=== PATIENT | female | born 1955 | race Caucasian/White ===

== ENCOUNTER 2016-08-03 11:54 | Inpatient (IN) | payer OTHER, SELFPAY ==
[~2016-08-03 11:54] MED LIST: AVELOX400 M1 PO; COLACE100 M1 PO; CUBICIN500 MG/10 IV; IBUPROFEN200 M2 PO; INVANZ1000 MG/VI IV; IRON325 M3 PO; NORCO 5-325 TA1 EACH PO; SILVADENE20 G1 TP; ZOLOFT100 M1 PO
[2016-08-03] MEDS ORDERED: ACETAMINOPHEN1 EAC4 PO (12:35)
[2016-08-03 12:45] LABS: HCT-HEMATOCRIT 26.5 % (34.0-49.0); HGB-HEMOGLOBIN 7.6 gm/dl (12.0-15.5); MCH (MEAN CORPUSCULAR HGB) 20.9 pg (28.0-32.0); MEAN PLATELET VOLUME 9.1 cmc (9.4-12.4); NEUTROPHIL-AUTOMATED 17.4 tho/cmm (1.6-8.0); PLATELET COUNT 221 tho/cmm (150-450); RED BLOOD COUNT 3.63 mil/cmm (4.00-5.20); RED CELL DISTRIBUTION WIDTH 16.3 % (12.4-16.4); WHITE BLOOD COUNT 18.4 tho/cmm (4.0-10.0)
[2016-08-03 12:54] LABS: MCHC MEAN CORPUSCULAR HGB CONC 28.7 % (32.0-36.0)
[2016-08-03 13:06] LABS: ALB/GLOB RATIO 0.6 (0.8-2.0); ALKALINE PHOSPHATASE 75 U/L (33-138); ALT/SGPT 17 U/L (12-78); ANION GAP 13 mmol/L (0-20); AST/SGOT 26 U/L (10-40); BILIRUBIN,TOTAL 0.6 mg/dl (0-1.5); BLOOD UREA NITROGEN 16 mg/dl (6-24); C-REACTIVE PROTEIN 7.9 mg/dl (0-0.9); CALCIUM 8.1 mg/dl (8.5-10.5); CARBON DIOXIDE-VENOUS 24 mmol/L (22-32); CHLORIDE 103 mmol/l (96-110); CREATININE 0.96 mg/dl (0.50-1.10); GLUCOSE 117 mg/dL (70-110); POTASSIUM 3.8 mmol/L (3.7-5.1); SODIUM 136 mmol/L (135-145); eGFR VALUE FOR BLACK 76 mL/Min
[2016-08-03 13:17] LABS: BAND % 21 % (0-20); BAND ABSOLUTE COUNT 3.9 tho/cmm (0-2.0)
[2016-08-03 13:29] LABS: INR 1.2 INR (0.9-1.1)
[2016-08-03 13:33] LABS: IRON 14 ug/dl (37-170); IRON BINDING CAPACITY 423 ug/dl (250-450)
[2016-08-03 13:34] LABS: PROCALCITONIN 11.97 ng/ml (0.05-0.09)
[2016-08-03 13:58] LABS: URINE APPEARANCE CLEAR; URINE BILIRUBIN NEGATIVE (NEG); URINE BLOOD SMALL (NEG); URINE COLOR DARK YELLOW; URINE GLUCOSE (UA) NEGATIVE (NEG); URINE KETONE SMALL (NEG); URINE LEUKOCYTE ESTERASE NEGATIVE (NEG); URINE NITRITE NEGATIVE (NEG); URINE PH 6.5 (5.0-8.0); URINE PROTEIN SMALL (NEG)
[2016-08-03 13:59] LABS: FOLATE (FOLIC ACID) 4.1 ng/ml (3.20-20.00)
[2016-08-03 14:05] LABS: URINE MUCUS 1+
[2016-08-03 14:06] LABS: URINE BACTERIA 1+; URINE RBC 0-3 /[HPF] (0-5); URINE WBC 0-1 /[HPF] (0-5)
[2016-08-03 21:39] LABS: ALB/GLOB RATIO 0.6 (0.8-2.0); ALBUMIN 2.4 g/dl (3.5-5.0); ALKALINE PHOSPHATASE 59 U/L (33-138); ALT/SGPT 15 U/L (12-78); ANION GAP 13 mmol/L (0-20); AST/SGOT 19 U/L (10-40); BILIRUBIN,TOTAL 0.4 mg/dl (0-1.5); BLOOD UREA NITROGEN 16 mg/dl (6-24); CALCIUM 7.2 mg/dl (8.5-10.5); CARBON DIOXIDE-VENOUS 23 mmol/L (22-32); CHLORIDE 107 mmol/l (96-110); CREATININE 0.81 mg/dl (0.50-1.10); GLUCOSE 110 mg/dL (70-110); POTASSIUM 3.6 mmol/L (3.7-5.1); SODIUM 139 mmol/L (135-145); eGFR VALUE FOR BLACK >90 mL/Min
[2016-08-04 05:23] LABS: BASO % 0.1 % (0-2); HGB-HEMOGLOBIN 6.4 gm/dl (12.0-15.5); IMMATURE GRANULOCYTES ABSOLUTE 0.03 tho/cmm (0-0.03); IMMATURE GRANULOCYTES PERCENT 0.3 % (0-0.3); LYMPH % 4.6 % (20-45); LYMPH ABSOLUTE COUNT 0.5 tho/cmm (0.8-4.5); MCH (MEAN CORPUSCULAR HGB) 21.4 pg (28.0-32.0); MCV (MEAN CELL VOLUME) 73.9 fl (82.0-96.0); MEAN PLATELET VOLUME 9.6 cmc (9.4-12.4); MONO % 5.3 % (0-12); MONOCYTE ABSOLUTE COUNT 0.6 tho/cmm (0.0-1.2); NEUTROPHIL ABSOLUTE COUNT 9.9 tho/cmm (1.6-8.0); NEUTROPHIL-AUTOMATED 9.9 tho/cmm (1.6-8.0); NEUTROPHILS % 89.7 % (40-80); PLATELET COUNT 149 tho/cmm (150-450); RED BLOOD COUNT 2.99 mil/cmm (4.00-5.20)
[2016-08-04 05:25] LABS: HCT-HEMATOCRIT 22.1 % (34.0-49.0)
[2016-08-04 05:35] LABS: ANION GAP 13 mmol/L (0-20); BLOOD UREA NITROGEN 17 mg/dl (6-24); CALCIUM 7.6 mg/dl (8.5-10.5); CARBON DIOXIDE-VENOUS 23 mmol/L (22-32); CHLORIDE 109 mmol/l (96-110); GLUCOSE 107 mg/dL (70-110); POTASSIUM 3.6 mmol/L (3.7-5.1); SODIUM 141 mmol/L (135-145); eGFR VALUE FOR BLACK >90 mL/Min
[2016-08-04 20:16] LABS: RED CELL DISTRIBUTION WIDTH 17.1 % (12.4-16.4)
[2016-08-04 20:24] LABS: HCT-HEMATOCRIT 18.3 % (34.0-49.0)
[2016-08-04 20:26] LABS: HGB-HEMOGLOBIN 5.3 gm/dl (12.0-15.5)
[2016-08-05 06:33] LABS: BASO % 0.1 % (0-2); IMMATURE GRANULOCYTES ABSOLUTE 0.03 tho/cmm (0-0.03); IMMATURE GRANULOCYTES PERCENT 0.4 % (0-0.3); LYMPH % 6.9 % (20-45); LYMPH ABSOLUTE COUNT 0.6 tho/cmm (0.8-4.5); MCV (MEAN CELL VOLUME) 75.6 fl (82.0-96.0); MEAN PLATELET VOLUME 9.8 cmc (9.4-12.4); MONO % 7.6 % (0-12); MONOCYTE ABSOLUTE COUNT 0.6 tho/cmm (0.0-1.2); PLATELET COUNT 133 tho/cmm (150-450); RED BLOOD COUNT 2.95 mil/cmm (4.00-5.20); RED CELL DISTRIBUTION WIDTH 17.3 % (12.4-16.4); WHITE BLOOD COUNT 8.2 tho/cmm (4.0-10.0)
[2016-08-05 06:37] LABS: HCT-HEMATOCRIT 22.3 % (34.0-49.0); HGB-HEMOGLOBIN 6.8 gm/dl (12.0-15.5); MCHC MEAN CORPUSCULAR HGB CONC 30.5 % (32.0-36.0)
[2016-08-05 07:04] LABS: C-REACTIVE PROTEIN 15.8 mg/dl (0-0.9); PROCALCITONIN 3.16 ng/ml (0.05-0.09)
[2016-08-06 05:44] LABS: BASO % 0.1 % (0-2); HGB-HEMOGLOBIN 8.3 gm/dl (12.0-15.5); IMMATURE GRANULOCYTES ABSOLUTE 0.04 tho/cmm (0-0.03); IMMATURE GRANULOCYTES PERCENT 0.5 % (0-0.3); LYMPH % 10.2 % (20-45); LYMPH ABSOLUTE COUNT 0.9 tho/cmm (0.8-4.5); MCH (MEAN CORPUSCULAR HGB) 22.7 pg (28.0-32.0); MCHC MEAN CORPUSCULAR HGB CONC 29.7 % (32.0-36.0); MCV (MEAN CELL VOLUME) 76.4 fl (82.0-96.0); MEAN PLATELET VOLUME 9.6 cmc (9.4-12.4); MONO % 9.6 % (0-12); MONOCYTE ABSOLUTE COUNT 0.8 tho/cmm (0.0-1.2); NEUTROPHIL ABSOLUTE COUNT 6.6 tho/cmm (1.6-8.0); NEUTROPHIL-AUTOMATED 6.6 tho/cmm (1.6-8.0); NEUTROPHILS % 79.6 % (40-80); PLATELET COUNT 176 tho/cmm (150-450); RED BLOOD COUNT 3.65 mil/cmm (4.00-5.20); RED CELL DISTRIBUTION WIDTH 17.2 % (12.4-16.4); WHITE BLOOD COUNT 8.3 tho/cmm (4.0-10.0)
[2016-08-06 05:49] LABS: HCT-HEMATOCRIT 27.9 % (34.0-49.0)
[2016-08-06 06:02] LABS: C-REACTIVE PROTEIN 17.2 mg/dl (0-0.9); CREATINE PHOSPHOKINASE (CPK) 17 U/L (21-215)
[2016-08-06 07:07] LABS: PROCALCITONIN 2.98 ng/ml (0.05-0.09)
[2016-08-07 04:47] LABS: BASO % 0.3 % (0-2); EOS % 0.1 % (0-7); HCT-HEMATOCRIT 28.8 % (34.0-49.0); HGB-HEMOGLOBIN 8.4 gm/dl (12.0-15.5); IMMATURE GRANULOCYTES ABSOLUTE 0.11 tho/cmm (0-0.03); IMMATURE GRANULOCYTES PERCENT 1.4 % (0-0.3); LYMPH % 13.4 % (20-45); LYMPH ABSOLUTE COUNT 1.1 tho/cmm (0.8-4.5); MCH (MEAN CORPUSCULAR HGB) 22.5 pg (28.0-32.0); MCHC MEAN CORPUSCULAR HGB CONC 29.2 % (32.0-36.0); MEAN PLATELET VOLUME 9.7 cmc (9.4-12.4); MONO % 10.1 % (0-12); MONOCYTE ABSOLUTE COUNT 0.8 tho/cmm (0.0-1.2); NEUTROPHILS % 74.7 % (40-80); PLATELET COUNT 188 tho/cmm (150-450); RED BLOOD COUNT 3.74 mil/cmm (4.00-5.20); RED CELL DISTRIBUTION WIDTH 17.4 % (12.4-16.4)
[2016-08-07 04:56] LABS: ANION GAP 13 mmol/L (0-20); BLOOD UREA NITROGEN 11 mg/dl (6-24); C-REACTIVE PROTEIN 13.4 mg/dl (0-0.9); CALCIUM 8.6 mg/dl (8.5-10.5); CARBON DIOXIDE-VENOUS 26 mmol/L (22-32); CHLORIDE 107 mmol/l (96-110); CREATININE 0.58 mg/dl (0.50-1.10); GLUCOSE 96 mg/dL (70-110); POTASSIUM 3.3 mmol/L (3.7-5.1); SODIUM 143 mmol/L (135-145); eGFR VALUE FOR BLACK >90 mL/Min
[2016-08-07 05:57] LABS: PROCALCITONIN 1.44 ng/ml (0.05-0.09)
[2016-08-08 05:29] LABS: BASO % 0.8 % (0-2); BASO ABSOLUTE COUNT 0.1 tho/cmm (0.0-0.2); EOS % 0.1 % (0-7); HCT-HEMATOCRIT 28.7 % (34.0-49.0); HGB-HEMOGLOBIN 8.6 gm/dl (12.0-15.5); IMMATURE GRANULOCYTES ABSOLUTE 0.17 tho/cmm (0-0.03); IMMATURE GRANULOCYTES PERCENT 2.2 % (0-0.3); LYMPH % 15.4 % (20-45); LYMPH ABSOLUTE COUNT 1.2 tho/cmm (0.8-4.5); MCV (MEAN CELL VOLUME) 76.7 fl (82.0-96.0); MEAN PLATELET VOLUME 9.9 cmc (9.4-12.4); MONO % 9.3 % (0-12); MONOCYTE ABSOLUTE COUNT 0.7 tho/cmm (0.0-1.2); NEUTROPHIL ABSOLUTE COUNT 5.5 tho/cmm (1.6-8.0); NEUTROPHIL-AUTOMATED 5.5 tho/cmm (1.6-8.0); NEUTROPHILS % 72.2 % (40-80); PLATELET COUNT 222 tho/cmm (150-450); RED BLOOD COUNT 3.74 mil/cmm (4.00-5.20); RED CELL DISTRIBUTION WIDTH 17.6 % (12.4-16.4); WHITE BLOOD COUNT 7.7 tho/cmm (4.0-10.0)
[2016-08-08 05:38] LABS: C-REACTIVE PROTEIN 10.1 mg/dl (0-0.9)
[2016-08-08 06:22] LABS: PROCALCITONIN 1.05 ng/ml (0.05-0.09)
[2016-08-09 04:53] LABS: BASO % 0.6 % (0-2); EOS % 0.3 % (0-7); HGB-HEMOGLOBIN 8.9 gm/dl (12.0-15.5); IMMATURE GRANULOCYTES ABSOLUTE 0.26 tho/cmm (0-0.03); IMMATURE GRANULOCYTES PERCENT 3.9 % (0-0.3); LYMPH ABSOLUTE COUNT 1.3 tho/cmm (0.8-4.5); MCHC MEAN CORPUSCULAR HGB CONC 29.7 % (32.0-36.0); MCV (MEAN CELL VOLUME) 77.5 fl (82.0-96.0); MEAN PLATELET VOLUME 9.9 cmc (9.4-12.4); MONO % 9.6 % (0-12); MONOCYTE ABSOLUTE COUNT 0.6 tho/cmm (0.0-1.2); NEUTROPHIL ABSOLUTE COUNT 4.4 tho/cmm (1.6-8.0); NEUTROPHIL-AUTOMATED 4.4 tho/cmm (1.6-8.0); NEUTROPHILS % 66.6 % (40-80); PLATELET COUNT 250 tho/cmm (150-450); RED BLOOD COUNT 3.87 mil/cmm (4.00-5.20); WHITE BLOOD COUNT 6.6 tho/cmm (4.0-10.0)
[2016-08-09 05:01] LABS: C-REACTIVE PROTEIN 6.9 mg/dl (0-0.9)
[2016-08-09 05:58] LABS: PROCALCITONIN 0.61 ng/ml (0.05-0.09)
[2016-08-10 05:38] LABS: BASO % 0.4 % (0-2); EOS % 0.8 % (0-7); HCT-HEMATOCRIT 30.2 % (34.0-49.0); IMMATURE GRANULOCYTES ABSOLUTE 0.11 tho/cmm (0-0.03); IMMATURE GRANULOCYTES PERCENT 2.3 % (0-0.3); LYMPH ABSOLUTE COUNT 1.4 tho/cmm (0.8-4.5); MCHC MEAN CORPUSCULAR HGB CONC 29.8 % (32.0-36.0); MEAN PLATELET VOLUME 9.5 cmc (9.4-12.4); MONO % 8.9 % (0-12); MONOCYTE ABSOLUTE COUNT 0.4 tho/cmm (0.0-1.2); NEUTROPHIL ABSOLUTE COUNT 2.8 tho/cmm (1.6-8.0); NEUTROPHIL-AUTOMATED 2.8 tho/cmm (1.6-8.0); NEUTROPHILS % 58.6 % (40-80); PLATELET COUNT 233 tho/cmm (150-450); RED BLOOD COUNT 3.92 mil/cmm (4.00-5.20); RED CELL DISTRIBUTION WIDTH 18.3 % (12.4-16.4); WHITE BLOOD COUNT 4.8 tho/cmm (4.0-10.0)
[2016-08-10 05:55] LABS: ALBUMIN 2.3 g/dl (3.5-5.0); ANION GAP 10 mmol/L (0-20); BLOOD UREA NITROGEN 8 mg/dl (6-24); C-REACTIVE PROTEIN 3.7 mg/dl (0-0.9); CALCIUM 7.9 mg/dl (8.5-10.5); CARBON DIOXIDE-VENOUS 29 mmol/L (22-32); CHLORIDE 105 mmol/l (96-110); CREATINE PHOSPHOKINASE (CPK) 17 U/L (21-215); CREATININE 0.52 mg/dl (0.50-1.10); GLUCOSE 100 mg/dL (70-110); PHOSPHOROUS 2.7 mg/dl (2.5-4.9); SODIUM 141 mmol/L (135-145); eGFR VALUE FOR BLACK >90 mL/Min
[2016-08-10 06:18] LABS: POTASSIUM 2.8 mmol/L (3.7-5.1)
[2016-08-10 06:44] LABS: PROCALCITONIN 0.41 ng/ml (0.05-0.09)
[2016-08-10] MEDS ORDERED: INVANZ1000 MG/VI IV (13:33)
[2016-08-10] MEDS ORDERED: FEOSOL325 M1 PO (13:33)
[2016-08-10] MEDS ORDERED: PROTONIX40 M2 PO (13:34)
== END 2016-08-10 16:56 | disposition home health service (06) | DRG 872 ==
LOC: EDMED 11:54 → EMR2 15:11 → 5WE 17:05
PROVIDERS: Emergency Medicine; Internal Medicine Infectious Disease; ADMIT Family Medicine
PROC: 0DJD8ZZ Inspection of Lower Intestinal Tract, Via Natural or Artificial Opening Endoscopic (ICD-10-PCS; principal; 2016-08-03)
PROC: 0DB68ZX Excision of Stomach, Via Natural or Artificial Opening Endoscopic, Diagnostic (ICD-10-PCS; 2016-08-03)
PROC: 02HV33Z Insertion of Infusion Device into Superior Vena Cava, Percutaneous Approach (ICD-10-PCS; 2016-08-04)
DX: A41.9 Sepsis, unspecified organism (principal); D69.6 Thrombocytopenia, unspecified; L03.116 Cellulitis of left lower limb; Z68.42 Body mass index [BMI] 45.0-49.9, adult; I87.8 Other specified disorders of veins; D64.9 Anemia, unspecified; F32.9 Major depressive disorder, single episode, unspecified; F41.9 Anxiety disorder, unspecified; R65.20 Severe sepsis without septic shock; E66.01 Morbid (severe) obesity due to excess calories; K57.90 Diverticulosis of intestine, part unspecified, without perforation or abscess without bleeding; K64.8 Other hemorrhoids; D50.9 Iron deficiency anemia, unspecified; K20.9 Esophagitis, unspecified; K44.9 Diaphragmatic hernia without obstruction or gangrene
CPT/HCPCS: C1751; J0780; J0878; J1200; J1335; J1650; J1956; J2270; J2405; J2543; J3370; J7030; P9016; P9612